=== PATIENT | male | born 1990 | race Two or more races ===

== ENCOUNTER 2025-02-11 23:09 | Emergency (ER) | payer OTHER ==
[~2025-02-11] VITALS: Ht 167.6 cm; Wt 98.9 kg
[2025-02-11] MEDS ORDERED: HUMALOG100 UNIT/2 (23:27)
[2025-02-11] MEDS ORDERED: NEOMYCIN/POLYMYXIN B/HYDROCORT 20 DR/ML BOTTLE OT STA (23:47)
[2025-02-11] MEDS ORDERED: KETOROLAC TROMETHAMINE 10 MG TABLET PO STA (23:47)
[2025-02-11] MEDS ORDERED: CEFTRIAXONE SODIUM 1,000 MG VIAL IM STA (23:48)
[2025-02-12] MEDS ORDERED: KETO10TA2 PO ×2 (00:06→00:07)
[2025-02-12] MEDS ORDERED: CORTISPORIN EAR10 M1 OT (00:07)
== END 2025-02-12 00:16 | disposition home or self-care (01) ==
LOC: ER 23:10
DX: H60.8X2 Other otitis externa, left ear (principal); E11.9 Type 2 diabetes mellitus without complications; Z79.4 Long term (current) use of insulin